=== PATIENT | male | born 1955 | race Caucasian/White ===

== ENCOUNTER 2024-10-06 09:19 | Emergency (ER) | payer OTHER, SELFPAY ==
[2024-10-06 09:21] VITALS: BP 128/76
[2024-10-06 09:24] VITALS: BP 128/76
[2024-10-06] MEDS: TYLENOL 1000 MG PO (09:38)
--- NOTE | 2024-10-06 09:52 | ED.GENMED ---
History of Present Illness
General
Chief Complaint: Heart Rate Problem
Time Seen by Provider: 10/06/24 09:25
History of Present Illness
History of Present Illness:
PAST MEDICAL HISTORY AND REVIEW OF OLD RECORDS
- The patient has a history of asthma, hyperlipoidemia, mitral regurgitation. There are no records to review in [facility].
Note:
CHIEF COMPLAINT(S)
Redness of the face and feeling unwell after an incident at the beach.
HISTORY OF PRESENT ILLNESS
The patient is a 69-year-old male who presented to the emergency department after feeling unwell following a weekend at the beach. The patient reports falling asleep on the beach, resulting in facial redness suspected to be sunburn. Upon arrival,
the patient was evaluated for an elevated body temperature, resembling a fever. Emergency medical services transported the patient, initially suspecting atrial fibrillation. However, upon review, the patients heart rhythm was identified as atrial
bigeminy. The patient denies any significant coughing or urinary symptoms such as increased frequency or burning. He states he might be dehydrated, as he has not been drinking adequate fluids, leading to reduced urine output. The patient is also
frequently in wooded areas, raising concerns for potential tick-borne illnesses.
ADDITIONAL HISTORY OBTAINED FROM SOURCES OTHER THAN THE PATIENT
Per EMS report, there was an initial diagnosis of atrial fibrillation at urgent care. The patient was transported due to an abnormal heart rhythm.
EXTERNAL RECORDS REVIEWED
EKG performed with EMS shows a pattern consistent with atrial bigeminy, not atrial fibrillation.
PHYSICAL EXAM
General: Alert, no acute distress.
Skin: Warm, dry, some patchy macules some of which are confluent noted to the upper back and face
Head: Normocephalic, atraumatic.
Neck: Supple, trachea midline.
Eye Ears, nose, mouth and throat: Oral mucosa moist.
Cardiovascular: Normal peripheral perfusion, No edema, rhythm indicative of atrial bigeminy.
Respiratory: Respirations are non-labored, lung sounds clear.
Gastrointestinal: Abdomen nondistended.
Back: Normal range of motion, Normal alignment. There is also some faint patchy erythema noted to the upper back skin.
Musculoskeletal: Normal ROM, normal strength.
Neurological: Alert and oriented to person, place, time, and situation, No focal neurological deficit observed.
Psychiatric: Cooperative, appropriate mood & affect.
PLAN
- Administer intravenous fluids to address potential dehydration.
- Monitor urine output following fluid administration.
- Await results from blood cultures to rule out bloodstream infections.
- Add a tick-borne illness panel due to the patients frequent exposure to wooded areas, with particular attention to Babesiosis.
DIFFERENTIAL DIAGNOSIS
The differential diagnosis includes, in no particular order and is not limited to:
1. Sunburn.
2. Dehydration.
3. Atrial bigeminy.
4. Tick-borne illness (e.g., Babesiosis).
5. Urinary tract infection.
6. Heat exhaustion.
7. Viral syndrome.
8. Bacterial bloodstream infection.
9. Lyme disease.
10. Endocarditis.
RADIOLOGY
- Chest x-ray shows no acute abnormality
EKG
- Sinus 104, frequent atrial ectopy, runs of atrial bigeminy
LABS
- White count 6.9, hemoglobin 15.2, sodium 130, total bili is 1.4, AST 197, ALT 196, total bili 1.4
UPDATE
-SUMMARY OF ENCOUNTER
The patient, a 69-year-old male, presented to the emergency department with facial redness and feeling unwell after a weekend at the beach. The patient suspected sunburn from the facial redness and reported falling asleep in the sun. Upon
examination, he was found to have an abnormal heart rhythm, initially suspected to be atrial fibrillation but later identified as atrial bigeminy. He also mentioned potential dehydration due to inadequate fluid intake. Blood tests revealed low
platelet counts and abnormal liver function tests. Considering his frequent exposure to wooded areas and symptoms, a tick-borne illness was considered. The patient reported headaches over the past few days but denied joint pains. The medical team
administered two liters of intravenous fluids and acetaminophen. Suspicion of a tick-borne illness, potentially Lyme disease or Babesiosis, was raised, and the case was to be discussed with an infectious disease specialist regarding possible
empirical treatment.
PLAN
- Administer intravenous fluids to address potential dehydration.
- Monitor urine output following fluid administration.
- Await results from blood cultures to rule out bloodstream infections.
- Add a tick-borne illness panel due to the patients frequent exposure to wooded areas, with particular attention to Babesiosis.
- Discuss with infectious disease specialist about empirical treatment, possibly with doxycycline or medications for Babesiosis.
INDEPENDENT REVIEW OF LABS AND INTERPRETATION OF TESTS
My independent review of the complete blood count shows a slightly low platelet count of 126,000/uL, with normal white blood cell count. Liver function tests are abnormal, indicating possible liver involvement.
MEDICATION RECONCILIATION
- Acetaminophen administered in the emergency department.
- Intravenous fluids (two liters) administered.
MEDICAL DECISION MAKING
-Complexity of Data Reviewed: Chronic conditions affecting care included in the differential diagnosis are sunburn, dehydration, atrial bigeminy, tick-borne illness (e.g., Babesiosis), urinary tract infection, heat exhaustion, viral syndrome,
bacterial bloodstream infection, Lyme disease, and endocarditis.
-Data:
Category 1:
Non-emergency department records reviewed, including external EKG records confirming atrial bigeminy.
Clinical information was obtained from EMS reports which initially suspected atrial fibrillation, corrected to atrial bigeminy upon review.
Category 2:
My independent interpretation of the EKG is indicative of atrial bigeminy.
Category 3:
Discussion of management with the infectious disease specialist to determine the need for empirical treatment for suspected tick-borne illness.
-Risk:
Consideration of Admission/Observation: Escalation of care including admission/observation was considered given the complexity and risk of the patients presenting complaint, exam findings, and/or their underlying comorbidities. However, ultimately I
feel the patient is safe for outpatient management with close follow-up. Reasoning: Work-up reassuring, does not reveal any acute life/organ threatening processes, patients symptoms well controlled upon reevaluation, reexamination is reassuring,
vitals are stable, patient agreeable with discharge, reliable for follow-up.
DIAGNOSIS
1. Atrial bigeminy (I49.3)
2. Dehydration (E86.0)
3. Possible tick-borne illness (E88.89)
I discussed case with Dr. Walton who agrees with doxycycline empirically. Blood parasites negative for babesiosis.
Phy Exam
Physical Exam
Physical Exam:
See HPI
Sepsis
Sepsis Screening
Sepsis Assessment: Sepsis Ruled Out
Sepsis Screen
Sepsis Screen: Sepsis Ruled Out
Date: 10/06/24
Time: 14:26
Course
Orders/Labs/Results
Orders:
Orders
10/06/24 09:23
Electrocardiogram (*1) Urgent
Reason for Study: Chest Pain
EKG- Treatment ONCE
10/06/24 09:33
Acetaminophen [Tylenol] 1,000 mg .ROUTE .STK-MED ONE
10/06/24 09:37
Acetaminophen [Tylenol] 1,000 mg PO NOW STA
10/06/24 09:40
CMP [Comprehensive Metabolic Panel] Urgent
Complete Blood Count/With Diff Urgent
Lactic Acid Urgent
Blood Culture Urgent
LIZETH Source: Blood/Venous
Specimen Description:
10/06/24 09:54
0.9% Sodium Chloride 1000 ml [Nss] 1,000 ml IV BOLUS
10/06/24 10:02
Add On- LAB Urgent
Tests Added?: tick panel
CR Chest - 2 Views Urgent
Comment:
Reason For Exam: sepsis; no cough
10/06/24 10:17
0.9% Sodium Chloride 1000 ml [Nss] 1,000 ml IV BOLUS
10/06/24 11:44
Urinalysis Reflex To Culture Urgent
Date Specimen was Collected: 10/06/24
Time Specimen was Collected: 11:43
Urine Microscopic Reflex Cult Urgent
10/06/24 12:40
Doxycycline [Vibramycin] 100 mg PO NOW STA
10/06/24 13:01
Blood Parasites Urgent
LIZETH Source: Blood/Venous
Specimen Description:
Abnormal Lab Results
10/06/24 10/06/24
09:40 11:44
MCH 31.3 H pg
(27.0-31.0)
Plt Count 126 L 10^3/uL
(130-400)
Abs Immat Gran (auto) 0.1 H 10^3/uL
(0-0.05)
Absolute Lymphs (auto) 0.2 L 10^3/uL
(1.2-3.4)
Immature Gran % 0.7 H %
(0-0.5)
Neutrophils % 90.4 H %
(42.2-75.2)
Lymphocytes % 2.7 L %
(20.5-51.1)
Sodium 130 L mmol/L
(135-145)
BUN 22 H mg/dl
(9-20)
Glucose 109 H mg/dl
(70-99)
Calcium 8.1 L mg/dl
(8.4-10.2)
Total Bilirubin 1.4 H mg/dl
(0.2-1.3)
AST 197 H U/L
(17-59)
ALT 196 H U/L
(0-50)
Total Protein 5.7 L g/dl
(6.3-8.2)
Urine Ketones 2+ A
(Negative)
Urine Bacteria (Reflex) Few A
(Negative)
Urine Albumin (Reflex) 2+ A
(Neg - Trace)
10/06/24 09:40
10/06/24 09:40
Vital Signs
Initial and Last Documented VS:
Initial Vital Signs
BP
128/76
10/06/24 09:21
Last Documented Vital Signs
Temp Pulse Resp BP Pulse Ox
37.8 C 70 20 109/86 94
10/06/24 11:55 10/06/24 13:30 10/06/24 13:30 10/06/24 11:00 10/06/24 09:54
*Pulse Oximetry
SaO2: 94
Oxygen Mode of Delivery: Room air
Patient hypoxic: no
*Critical Care Note
Total Time (30-74mins, 75-104mins- exclusive of procedures): Not Applicable
ED Attending Note
-
Portions of this chart may have been created with voice recognition software.� Occasional wrong word or��sound alike� substitutions may have occurred due to the inherent limitations of voice recognition software.
Discharge Plan
Departure
Patient Disposition: Home (Routine Discharge)
Date of Disposition: 10/06/24
Time of Disposition: 14:03
Patient with high blood pressure during this ER visit?: Yes
Discharge Problem:
Fever
Prescriptions:
New
doxycycline monohydrate 100 mg tablet
100 mg PO BID Qty: 28 0RF
Referrals:
Manny Mendoza DO [Family Provider, Family Practice]
Activity Restrictions/Additional Instructions:
Take Tylenol and/or Motrin for fevers. Your liver numbers are slightly abnormal and your platelet count is slightly low. This could be seen with Lyme disease or other tickborne illnesses. I discussed with infectious disease and we agreed to start
you on doxycycline. The blood parasite smear does not show any signs of a babesiosis or any other abnormality. The urinalysis shows no sign of infection and the chest x-ray shows no sign of pneumonia.
Interventions
Interventions:
*Risk Screen - Suicide Last Done: 10/06/24 09:24
*General Assessment Last Done: 10/06/24 09:24
*Neglect/Abuse Screening Last Done: 10/06/24 09:24
*ED- Fall Risk Assessment Last Done: 10/06/24 09:24
*ED COVID-19 Vaccine History Last Done: 10/06/24 11:55
ED- Cardiac Assessment Last Done: 10/06/24 09:24
ED- Pulmonary Assessment Last Done: 10/06/24 11:55
Discharge Date and Time
Print Language: ANGOLAN
[2024-10-06 10:00] VITALS: BP 91/66
[2024-10-06 10:05] LABS: Hematocrit 42.9 % (39.0-52.0); Hemoglobin 15.2 g/dL (13.0-18.0); Mean Corp Hgb Conc. 35.4 g/dL (33.0-37.0); Mean Corpuscular Volume 88.3 fL (80.0-94.0); Nucleated Red Blood Cells % 0 % (-); Platelet Count 126 10^3/uL (130-400); Red Cell Dist. Width 12.9 % (11.5-14.5)
[2024-10-06 10:10] LABS: ALT (SGPT) 196 U/L (0-50); AST (SGOT) 197 U/L (17-59); Albumin 3.5 g/dl (3.5-5.0); Alkaline Phosphatase 83 U/L (38-126); Blood Urea Nitrogen 22 mg/dl (9-20); Calcium 8.1 mg/dl (8.4-10.2); Carbon Dioxide 26 mmol/L (22-30); Chloride 99 mmol/L (98-107); Glucose 109 mg/dl (70-99); Potassium 3.8 mmol/L (3.5-5.1); Sodium 130 mmol/L (135-145); Total Protein 5.7 g/dl (6.3-8.2); eGFR > 60.00
[2024-10-06] MEDS: NSS 1000 IV ×2 (10:15→10:33)
[2024-10-06 11:00] VITALS: BP 109/86
[2024-10-06 12:20] LABS: Urine Character Clear (Clear)
[2024-10-06 12:36] LABS: Urine Red Blood Cell 0-2 /HPF (0-2)
[2024-10-06] MEDS: VIBRAMYCIN 100 MG PO (12:58)
== END 2024-10-06 14:35 | disposition home or self-care (01) ==
LOC: EMR 09:19
PROVIDERS: EMERGENCY PHYSICIAN Emergency Medicine; FAMILY PHYSICIAN Family Medicine
DX: R50.9 Fever, unspecified (principal); I34.0 Nonrheumatic mitral (valve) insufficiency; E78.5 Hyperlipidemia, unspecified; J45.909 Unspecified asthma, uncomplicated
CPT/HCPCS: 99284; 96360; 96361; 71046; 80053; 81003; 81015; 83605; 85025; 87015; 87040; 87207; 93005

== ENCOUNTER 2024-10-07 00:51 | Emergency (ER) | payer OTHER, SELFPAY ==
[2024-10-07] VITALS (7 sets, daily range): BP systolic 127–143; BP diastolic 65–84; BMI 34.6
[2024-10-07 01:59] LABS: Hematocrit 39.2 % (39.0-52.0); Hemoglobin 13.9 g/dL (13.0-18.0); Mean Corp Hgb Conc. 35.5 g/dL (33.0-37.0); Mean Corpuscular Volume 87.9 fL (80.0-94.0); Nucleated Red Blood Cells % 0 % (-); Platelet Count 118 10^3/uL (130-400); Red Cell Dist. Width 13.0 % (11.5-14.5)
[2024-10-07] MEDS: NSS 1000 IV (02:01)
[2024-10-07 02:15] LABS: ALT (SGPT) 282 U/L (0-50); AST (SGOT) 299 U/L (17-59); Albumin 3.3 g/dl (3.5-5.0); Alkaline Phosphatase 114 U/L (38-126); Blood Urea Nitrogen 18 mg/dl (9-20); Calcium 8.0 mg/dl (8.4-10.2); Carbon Dioxide 26 mmol/L (22-30); Chloride 100 mmol/L (98-107); Estimated Creatinine Clearance 115 ml/min; Glucose 124 mg/dl (70-99); Potassium 3.7 mmol/L (3.5-5.1); Sodium 130 mmol/L (135-145); Total Protein 5.4 g/dl (6.3-8.2); eGFR > 60.00
[2024-10-07] MEDS: TORADOL 15 MG IV (02:23)
[2024-10-07 02:28] LABS: Troponin I 0.023 ng/ml
--- NOTE | 2024-10-07 02:58 | ED.GENMED ---
History of Present Illness
General
Chief Complaint: Chest Pain
Source: patient
Exam Limitations: none
Time Seen by Provider: 10/07/24 02:54
Nursing documentation reviewed up to this point in time: agreed with
History of Present Illness
History of Present Illness:
Note:
CHIEF COMPLAINT(S)
Persistent fever, headaches, new onset of chest pain, and abdominal tenderness.
HISTORY OF PRESENT ILLNESS
The patient is a 69-year-old male with a history of hypertension, aortic valve regurgitation, and aortic aneurysm under surveillance. He presented with fever and chills that began on Sunday night, which he initially attributed to a sunburn. The
chills are described as lasting up to one hour, and the fever intermittently resolves but then returns. He was seen in our ER yesterday. He had a headache, notably worsening since yesterday, with pain felt in the temples and over the eyes. The
headache tends to improve when the fever subsides but returns soon after. He experiences shortness of breath and has had a flushed appearance with some rash noted on his back.
New symptoms include abdominal pain localized to the right upper quadrant, particularly tender upon palpation, and chest pain in the left, which started on the way to the ER today. He denies vomiting but reports gastrointestinal upset attributed to
doxycycline, which he started taking recently on the advice of an infectious disease specialist. He also reports not eating substantially in the last three days, which might contribute to gastrointestinal symptoms.
PAST MEDICAL AND SURIGICAL HISTORY
The patient has a history of hypertension, aortic valve regurgitation, and an abdominal aortic aneurysm. He has had a surgical repair of a hernia.
CHRONIC MEDICAL CONDITIONS SIGNIFICANTLY AFFECTING CARE
- Hypertension
- Aortic valve regurgitation
- Abdominal aortic aneurysm under annual surveillance
MEDICATIONS
Currently taking doxycycline for tick-borne illness suspicion.
PHYSICAL EXAM
General: Alert, no acute distress.
Skin: Warm, dry. Cheeks are flushed. No rash I am able to appreciate on the back.
Head: Normocephalic, atraumatic.
Neck: Supple, trachea midline.
Eyes, Ears, Nose, Mouth, and Throat: Oral mucosa moist.
Cardiovascular: Normal peripheral perfusion, No edema.
Respiratory: Respirations are non-labored.
Gastrointestinal: Abdomen is tender to palpation, especially in the right upper quadrant.
Back: Normal range of motion, Normal alignment. [place] rash observed.
Musculoskeletal: Normal range of motion, normal strength.
Neurological: Alert and oriented to person, place, time, and situation, No focal neurological deficit observed. CN II-XII intact. No meningismus.
Psychiatric: Cooperative, appropriate mood & affect.
ECG
Initial ECG shows sinus rhythm with atrial bigeminy with no ischemic changes, repeat EKG after repeat troponin shows tachycardia with a rate of 109 no ischemia
PROBLEM LIST
Acute:
- Fever and chills
- Headache
- Right upper quadrant abdominal pain
- Chest pain
Chronic:
- Hypertension
- Aortic valve regurgitation
- Abdominal aortic aneurysm
PLAN
1. Administer Tylenol to manage fever.
2. Conduct an ultrasound of the gallbladder to evaluate tenderness in the right upper quadrant.
3. Continue IV fluids to manage hydration, IV toradol
4. Repeat cardiac enzyme levels to assess for potential cardiac involvement.
5. See if tick borne illness testing has come back
6. Evaluate liver function tests.
7. Consider alternative antibiotic treatment if gastrointestinal symptoms persist with doxycycline.
8. Monitor symptoms and consider additional probiotic therapy for gastrointestinal management.
9. Pain management using Toradol and assess the need for small frequent meals to improve tolerance.
DIFFERENTIAL DIAGNOSIS
The differential diagnosis includes, in no particular order and is not limited to:
- Tick-borne diseases (e.g., Lyme disease, Babesiasis, [place] Spotted Fever)
- Viral hepatitis
- Hepatitis A
- Cholecystitis
- Drug-induced gastrointestinal upset
- Myocardial infarction
- Aortic aneurysm complication
- Gastroenteritis
- Influenza
- Sinusitis
CHART REVIEW
Reviewed ER physician 10/06/2024 patient seen for fever infectious disease was consulted patient was started on doxycycline
Reviewed external medical summary note from September 04, 2024 patient seen for aortic insufficiency and aortic aneurysm which has not increased in size
UPDATE
-chest pain resolved without intervention, patient feeling better after Tylenol, headache resolved, repeat troponin undetectable repeat EKG shows tachycardia with rate of 109 it was read as A-fib however cardiac monitoring shows P waves with rate of
70 no evidence of afib
MDM/DISPOSITION
The patient is a 69-year-old male with a history of hypertension, aortic valve regurgitation, and aortic aneurysm under surveillance. He presented with fever and chills that began on Sunday night, which he initially attributed to a sunburn. The
chills are described as lasting up to one hour, and the fever intermittently resolves but then returns. He was seen in our ER yesterday. He had a headache, notably worsening since yesterday, with pain felt in the temples and over the eyes.He states
that the fevers are persistent but he does admit to not alternating Motrin with Tylenol for the fever. The chest pain is new compared to yesterday. The abdominal bloating and discomfort is also new. On physical exam he is febrile and his cheeks
are flushed. He has tenderness in the right upper quadrant. No jaundice. Labs reviewed no leukocytosis. Sodium stable. Total bilirubin and LFTs have mildly trended up. Initial troponin 0.023. Repeat troponin undetectable. He went for ultrasound
which showed no signs of cholecystitis. Hepatitis testing added on which was negative. Remaining tickborne illness testing pending. Suspect symptoms related to febrile illness. Patient feels better once fever controlled. Patient expresses
concern about stomach upset and due to Doxy and ibuprofen. Stressed importance of taking doxycycline and using Zofran if he develops nausea and eating small meals with the medications. Number given for Dr. Walton's office. Patient stable for
discharge. Case reviewed with ED attending.
Review of Systems
Review of Systems
All Other Systems: ROS reviewed and negative except as documented in HPI and ROS
Phy Exam
Physical Exam
Physical Exam:
see hpi
Scores
Heart Score for Chest Pain Patients
STEMI patient?: No
History: Slightly or Non-Suspicious
ECG: Normal
Age: >/= 65 years
Risk Factors: 1 or 2 Risk Factors
Troponin: </= Normal Limit
Heart Score for Chest Pain Patients: 3
Heart Score Risk: 2.5% MACE over next 6 weeks
Sepsis
Sepsis Screening
Sepsis Assessment: Sepsis Ruled Out
Sepsis Screen
Sepsis Screen: Sepsis Ruled Out
Date: 10/07/24
Time: 06:29
Course
Orders/Labs/Results
Orders:
Orders
10/07/24 00:55
ECG [Electrocardiogram (*1)] Urgent
Reason for Study: Chest Pain
EKG- Treatment ONCE
10/07/24 01:22
Cardiac Monitoring- Treatment ONCE
IV Insert/Care/Rem.- Treatment PRN
O2 Therapy [RESP] Urgent
Titrate/Wean O2 to maintain O2 sat greater than (%): 93
Special Instructions: TO MAINTAIN CONTINUOUS O2 SATS > OR = 93%
Pulse Ox/cont/shift [RESP] Urgent
Quantity: 1
Special Instructions: CONTINUOUS
10/07/24 01:36
Complete Blood Count/With Diff Urgent
Comprehensive Metabolic Panel Urgent
Lactic Acid Q4H
Comment: ON ICE, CANCEL 2ND ORDER IF FIRST LACTIC ACID LEVEL <2
Troponin I Urgent
10/07/24 02:01
0.9% Sodium Chloride 1000 ml [Nss] 1,000 ml IV BOLUS
10/07/24 02:21
Ketorolac [Toradol] 15 mg .ROUTE .STK-MED ONE
10/07/24 02:23
Ketorolac [Toradol] 15 mg IV NOW STA
10/07/24 03:19
Acetaminophen [Tylenol] 1,000 mg PO NOW STA
US Abdomen Limited Urgent
Comment:
Reason For Exam: right upper quadrant pain
10/07/24 03:26
Hepatitis A Antibody, Total Urgent
Hepatitis A IgM Antibody Urgent
Hepatitis B Core Ab, IgM Urgent
Hepatitis B Core Ab, Total Urgent
Hepatitis B Surface Antibody Urgent
Hepatitis B Surface Antigen Urgent
Hepatitis C Antibody Urgent
Monotest Urgent
10/07/24 04:21
Electrocardiogram (*1) Urgent
Reason for Study: Chest Pain
10/07/24 04:45
Troponin I Urgent
Abnormal Lab Results
10/07/24
01:36
RBC 4.46 L 10^6/uL
(4.70-6.10)
MCH 31.2 H pg
(27.0-31.0)
Plt Count 118 L 10^3/uL
(130-400)
Absolute Lymphs (auto) 0.3 L 10^3/uL
(1.2-3.4)
Neutrophils % 87.8 H %
(42.2-75.2)
Lymphocytes % 4.6 L %
(20.5-51.1)
Sodium 130 L mmol/L
(135-145)
Glucose 124 H mg/dl
(70-99)
Calcium 8.0 L mg/dl
(8.4-10.2)
Total Bilirubin 2.0 H mg/dl
(0.2-1.3)
AST 299 H U/L
(17-59)
ALT 282 H U/L
(0-50)
Total Protein 5.4 L g/dl
(6.3-8.2)
Albumin 3.3 L g/dl
(3.5-5.0)
10/07/24 01:36
10/07/24 01:36
Vital Signs
Initial and Last Documented VS:
Initial Vital Signs
Temp Pulse Resp BP Pulse Ox
101.6 F H 99 20 143/67 96
10/07/24 01:00 10/07/24 01:00 10/07/24 01:00 10/07/24 01:00 10/07/24 01:00
Last Documented Vital Signs
Temp Pulse Resp BP Pulse Ox
98.7 F 71 18 136/79 97
10/07/24 04:40 10/07/24 04:45 10/07/24 04:45 10/07/24 04:00 10/07/24 04:45
*Pulse Oximetry
SaO2: 95
Oxygen Mode of Delivery: Room air
Patient hypoxic: no
*Critical Care Note
Total Time (30-74mins, 75-104mins- exclusive of procedures): Not Applicable
ED Attending Note
-
Portions of this chart may have been created with voice recognition software.� Occasional wrong word or��sound alike� substitutions may have occurred due to the inherent limitations of voice recognition software.
Discharge Plan
Departure
Patient Disposition: Home (Routine Discharge)
Date of Disposition: 10/07/24
Time of Disposition: 05:54
Patient with high blood pressure during this ER visit?: Yes
Condition: Good
Discharge Problem:
Fever, Chest pain
Instructions: Chest pain, Fever in adults (DC)
Prescriptions:
New
ondansetron 4 mg tablet,disintegrating
4 mg PO Q4H PRN (Reason: nausea and vomiting) Qty: 10 0RF
No Action
doxycycline monohydrate 100 mg tablet
100 mg PO BID Qty: 28 0RF
Referrals:
Miguel Ángel Walton DO [Active, Infectious Diseases] - Call in 1-3 days for appt
Juan Santamaria MD [Active, Cardiology] - Call in 1-3 days for appt
Sabalaske,Manny E., DO [Family Provider, Family Practice]
Activity Restrictions/Additional Instructions:
Please call the attached number to schedule a follow up with infectious disease.
Your ultrasound not show any evidence of gallbladder infection. Your hepatitis testing was negative. You tested negative for mononucleosis. Tick borne illness panel pending.
Please continue taking doxycycline.
I recommend taking this with food and Zofran if needed. Please stay well hydrated and well rested.
Please alternate ibuprofen and acetaminophen as needed for fever. For Tylenol, you can take 325 mg to 1 g orally every 4-6 hours. Please not exceed 4 g in 24 hours. For the ibuprofen, you can take 200 mg orally every 4-6 hours and increase this
to 400 mg if needed every 4-6 hours.
Please follow up with your primary care provider.
Interventions
Interventions:
*Risk Screen - Suicide Last Done: 10/07/24 01:04
*General Assessment Last Done: 10/07/24 01:34
*Neglect/Abuse Screening Last Done: 10/07/24 01:04
*ED- Fall Risk Assessment Last Done: 10/07/24 01:00
*ED COVID-19 Vaccine History Last Done: 10/07/24 01:00
ED- Cardiac Assessment Last Done: 10/07/24 01:57
Discharge Date and Time
Print Language: SINHALA
[2024-10-07] MEDS: TYLENOL 1000 MG PO (03:25)
[2024-10-07 05:19] LABS: Troponin I < 0.012 ng/ml
--- NOTE | 2024-10-07 05:20 | EDRN ---
Patient is sleeping at this time , at bedside
[2024-10-07 05:25] LABS: Hepatitis B Surface Antigen Negative (Negative)
[2024-10-07 05:42] LABS: Hepatitis A Antibody, Total Negative (Negative); Hepatitis C Antibody Negative (Negative)
== END 2024-10-07 06:49 | disposition home or self-care (01) ==
LOC: EMR 00:51
PROVIDERS: Physician Assistant; EMERGENCY PHYSICIAN Emergency Medicine; FAMILY PHYSICIAN Family Medicine; REFERRING PHYSICIAN Internal Medicine Cardiovascular Disease
DX: R07.9 Chest pain, unspecified (principal); I10 Essential (primary) hypertension; I35.1 Nonrheumatic aortic (valve) insufficiency; I71.9 Aortic aneurysm of unspecified site, without rupture
CPT/HCPCS: 99284; 96374; 96361; 76705; 80053; 83605; 84484; 85025; 86308; 86704; 86705; 86706; 86708; 86709; 86803; 87340; 93005